=== PATIENT | male | born 1950 | race Caucasian/White ===

== ENCOUNTER 2020-12-24 08:33 | Outpatient (CLI) | payer MEDICARE ==
[2020-12-24 11:21] LABS: Hemoglobin 13.4 g/dL (13.5-17.5); Mean Corpuscular HGB CONC 33.4 g/dL (32.0-36.0); Mean Corpuscular Hemoglobin 31.2 pg (27.0-33.0); Mean Corpuscular Volume 93.5 fl (81.2-95.1); Mean Platelet Volume 9.3 fl (7.4-10.4); Platelet Count 260 10x3/uL (150-450); Red Blood Cell (RBC) Count 4.29 10x6/uL (4.32-5.72); White Blood Cell (WBC) Count 6.5 10x3/uL (3.5-10.5)
[2020-12-24 11:36] LABS: Anion Gap 11 mmol/L (10-20); BUN (Urea Nitrogen) 13 mg/dL (8.4-25.7); Calc. Creatinine Clearance 0 mL/min (70-130); Calcium 8.9 mg/dL (7.8-10.44); Carbon Dioxide 28 mmol/L (23-31); Chloride 105 mmol/L (98-107); Glucose 92 mg/dL (80-115); Potassium 4.1 mmol/L (3.5-5.1); Sodium 140 mmol/L (136-145)
[2020-12-24 11:39] LABS: PTT 28.5 sec (22.0-33.0); Prothrombin Time 11.1 sec (9.5-12.1)
[2020-12-24 17:39] LABS: SARS-CoV-2 PCR by NAA Not Detected (NotDetected)
== END 2020-12-24 08:34 | disposition home or self-care (01) ==
LOC: LABBT 08:33
PROVIDERS: ATTEND Surgery
DX: Z01.818 Encounter for other preprocedural examination (principal); Z20.822 Contact with and (suspected) exposure to COVID-19
CPT/HCPCS: 80048; 85027; 85610; 85730; 93005; U0003; U0005; 87635; 93010

== ENCOUNTER 2020-12-29 08:09 | Day surgery (SDC) | payer MEDICARE ==
[2020-12-29] MEDS ORDERED: Fentanyl 100 MCG/2 ML VIAL ONE ×2 (09:15→14:22)
[2020-12-29] MEDS ORDERED: Rocuronium Bromide 10 MG/ML (10ML VIAL) ONE (10:07)
[2020-12-29] MEDS ORDERED: PHENYLEPHRINE-NS 100 MCG/ML 10 ML SYRINGE ONE (10:07)
[2020-12-29] MEDS ORDERED: Glycopyrrolate 0.2 MG/ML 5 ML SYRINGE ONE (10:07)
[2020-12-29] MEDS ORDERED: Ondansetron PF 4 MG/2 ML Vial ONE (10:07)
[2020-12-29] MEDS ORDERED: PROPOFOL 200 MG/20 ML VIAL ONE (10:07)
[2020-12-29] MEDS ORDERED: Calcium Chloride 1 GM/10 ML Abboject SYRINGE ONE (10:07)
[2020-12-29] MEDS ORDERED: Dexamethasone 20 MG/5 ML VIAL ONE (10:07)
[2020-12-29] MEDS ORDERED: Lidocaine 1% PF 5 ML VIAL ONE (10:07)
[2020-12-29] MEDS ORDERED: ePHEDrine Sulfate 50 MG/10 ML VIAL ONE (10:07)
[2020-12-29] MEDS ORDERED: Mag-Al 1200 mg/1200 mg/30 ML UDCUP PO PRN (10:26)
[2020-12-29] MEDS ORDERED: traMADol HCl 50 MG TAB PO PRN (10:26)
[2020-12-29] MEDS ORDERED: Morphine 2 MG/ML VIAL SLOW IVP PRN (10:26)
[2020-12-29] MEDS ORDERED: Acetaminophen/Codeine 30-300mg Tablet PO PRN (10:26)
[2020-12-29] MEDS ORDERED: tiZANidine HCl 4 MG TAB PO PRN (10:26)
[2020-12-29] MEDS ORDERED: HYDROcodone/Acetaminophen 7.5/325 mg Tablet PO PRN (10:26)
[2020-12-29] MEDS ORDERED: Bisacodyl 10 MG SUPP PR PRN (10:26)
[2020-12-29] MEDS ORDERED: Ondansetron PF 4 MG/2 ML Vial IVP PRN (10:26)
[2020-12-29] MEDS ORDERED: Milk Of Magnesia 30 ML UDCUP PO PRN (10:26)
[2020-12-29] MEDS ORDERED: Lorazepam 1 MG TAB PO PRN (10:30)
[2020-12-29] MEDS: Sodium Chloride 0.9% 1,000 ML IV SCH (10:30)
[2020-12-29] MEDS ORDERED: Non-Formulary Item 1 EACH (Fluticasone Propionate [Flovent Diskus] 50 MCG Blst.W.Dev) R NARE PRN (10:30)
[2020-12-29] MEDS ORDERED: Loratadine 10 MG TAB PO PRN (10:35)
[2020-12-29] MEDS ORDERED: Thrombin 5000 UNITS/5 ML VIAL ONE (10:38)
[2020-12-29] MEDS ORDERED: hydrALAZINE 20 MG/ML VIAL SLOW IVP PRN (12:58)
[2020-12-29] MEDS ORDERED: SUGAMMADEX SODIUM 200 MG/2 ML VIAL ONE (12:59)
[2020-12-29] MEDS ORDERED: Ondansetron HCl/PF 4 MG/2 ML Vial IVP PRN (13:12)
[2020-12-29] MEDS ORDERED: Meperidine HCl/PF 25 MG/ML VIAL SLOW IVP PRN (13:12)
[2020-12-29] MEDS ORDERED: Promethazine HCl 25 MG/ML VIAL SLOW IVP PRN (13:12)
[2020-12-29] MEDS ORDERED: Promethazine HCl 25 MG/ML VIAL IM PRN (13:12)
[2020-12-29] MEDS ORDERED: Sodium Chloride 0.9% 10 ML ONE (13:19)
[2020-12-29] MEDS ORDERED: Albumin 5% 500 ML ONE (13:38)
[2020-12-29] MEDS: Gabapentin 100 MG CAP PO SCH ×2 (15:00→20:13)
[2020-12-29] MEDS: CEFAZOLIN 2 GM in Premix Bag 1 BAG IVPB SCH ×2 (16:20→23:35)
[2020-12-29 18:20] VITALS: BMI 32.1
[2020-12-29] MEDS: Metoprolol Tartrate 50 MG TAB PO SCH (20:13)
[2020-12-29] MEDS ORDERED: Gabapentin 300 MG CAP PO SCH (21:00)
[2020-12-29] MEDS: Acetaminophen 325 MG TAB PO PRN (21:22)
[2020-12-29 23:44] VITALS: BP 125/60; TEMP 98
[2020-12-30] MEDS: Sodium Chloride 0.9% 1,000 ML IV SCH (00:39)
[2020-12-30] MEDS: Acetaminophen 325 MG TAB PO PRN ×2 (03:03→09:20)
[2020-12-30] MEDS ORDERED: Lisinopril/Hydrochlorothiazide 20 mg/12.5 mg Tablet PO SCH (09:00)
[2020-12-30] MEDS ORDERED: Amlodipine 10 MG TAB PO SCH (09:00)
[2020-12-30] MEDS ORDERED: Allopurinol 300 MG TAB PO SCH (09:00)
[2020-12-30] MEDS ORDERED: Tamsulosin HCl 0.4 MG CAP PO SCH (09:00)
[2020-12-30] MEDS ORDERED: Potassium Chloride 10 MEQ TAB PO SCH (09:00)
[2020-12-30] MEDS ORDERED: Finasteride 5 MG TAB PO SCH (09:00)
[2020-12-30] MEDS: Gabapentin 100 MG CAP PO SCH (09:20)
[2020-12-30] MEDS: Metoprolol Tartrate 50 MG TAB PO SCH (09:20)
== END 2020-12-30 10:00 | disposition home or self-care (01) ==
LOC: SDC 08:09 → ONC 10:26 → SDC 12-30 10:00
PROVIDERS: ATTEND Surgery
PROC: 01NB0ZZ Release Lumbar Nerve, Open Approach (ICD-10-PCS; principal; 2020-12-29)
DX: M51.16 Intervertebral disc disorders with radiculopathy, lumbar region (principal); M21.372 Foot drop, left foot; G62.9 Polyneuropathy, unspecified; M48.061 Spinal stenosis, lumbar region without neurogenic claudication; Z79.899 Other long term (current) drug therapy; Z98.890 Other specified postprocedural states
CPT/HCPCS: 63047; 76000; P9045; J0690; J1100; J2405; J2704; J3010; J3370